=== PATIENT | male | born 1975 | race Caucasian/White ===

== ENCOUNTER 2024-03-02 01:04 | Inpatient (IN) ==
[2024-03-02] MEDS ORDERED: Etomidate 40 mg/20 ml (2 MG/ML) 20 ml VIAL (40 mg) ONE (01:48)
[2024-03-02] MEDS ORDERED: Midazolam 10 mg/10 ml VIAL 1 mg/ml 10 ml VIAL (10 mg) ONE (01:48)
[2024-03-02 03:06] LABS: INR 1.92 (0.85-1.14)
[2024-03-02 03:10] LABS: Hematocrit 17.8 % (38-53); Hemoglobin 5.6 g/dL (13.2-16.3); Mean Corpuscular Hemoglobin 27.5 pg (27-33); Mean Corpuscular Hgb Conc 31.3 g/dL (31-36); Mean Corpuscular Volume 87.9 fL (80-97); Platelet Count 374 10^3/uL (150-450); Red Blood Count 2.03 10^6/uL (4.06-5.63); Red Cell Distribution Width 17.7 % (12-17); White Blood Count 25.2 10^3/uL (3.6-10.2)
[2024-03-02 03:35] LABS: ABS Lymphocytes 0.7 10^3/uL (1.0-4.8); ABS Monocytes 1.9 10^3/uL (0.0-1.1); ABS Neutrophils 22.6 10^3/uL (1.5-7.6); Lymphocyte % 2.7 %
[2024-03-02 04:19] LABS: High Sensitivity Troponin 1 Hr 381 pg/mL (<20)
[2024-03-02] MEDS ORDERED: Dextrose 50% Syringe 50 ml 25 GM/50 ML SYRINGE ONE (04:46)
[2024-03-02 04:49] LABS: Albumin 3.6 g/dL (3.5-5.7); Albumin/Globulin Ratio 1.4 (1-3); Calcium 8.1 mg/dL (8.6-10.3); Creatinine, Serum 6.8 mg/dL (0.67-1.17); Globulin 2.5 g/dL (2-4); Magnesium 1.8 mg/dL (1.9-2.7); Total Protein 6.1 g/dL (6.4-8.9); eGFR CKD-EPI 9.2 (>60)
[2024-03-02] MEDS: Dextrose 50% Syringe 50 ml 25 GM/50 ML SYRINGE IV PUSH PRN (04:50)
[2024-03-02 06:38] LABS: Potassium 7.4 mmol/L (3.5-5.0)
[2024-03-02] MEDS: Propofol 10 mg/ml 100 ML BTL 1,000 MG/100 ML BTL IV SCH (07:40)
[2024-03-02] MEDS: Heparin 5000 UNITS/ML 1 mL VIAL SUBCUT SCH (08:20)
[2024-03-02] MEDS: Succinylcholine 200 mg VIAL 20 mg/ml 10 ml VIAL (200 mg) ONE (08:20)
[2024-03-02] MEDS ORDERED: NS 0.9% 1000 ml BAG 100 ML IV PRN (08:40)
[2024-03-02] MEDS ORDERED: NS 0.9% 1000 ml BAG 200 ML IV PRN (08:40)
[2024-03-02 08:45] LABS: Hematocrit 19.6 % (38-53); Hemoglobin 6.1 g/dL (13.2-16.3); Mean Corpuscular Hgb Conc 31.2 g/dL (31-36); Mean Corpuscular Volume 89.7 fL (80-97); Platelet Count 370 10^3/uL (150-450); Red Blood Count 2.18 10^6/uL (4.06-5.63); Red Cell Distribution Width 18.5 % (12-17); White Blood Count 29.2 10^3/uL (3.6-10.2)
[2024-03-02 09:05] LABS: Acetaminophen < 15 mcg/mL; Calcium 7.6 mg/dL (8.6-10.3); Creatinine, Serum 7.09 mg/dL (0.67-1.17); Potassium 7.9 mmol/L (3.5-5.0); Salicylate < 2.50 mg/dL (<30); eGFR CKD-EPI 8.8 (>60)
[2024-03-02 09:12] LABS: ABS Basophils 0.1 10^3/uL (0.0-0.1); ABS Eosinophils 0.1 10^3/uL (0.0-0.5); ABS Lymphocytes 1.3 10^3/uL (1.0-4.8); ABS Neutrophils 25.8 10^3/uL (1.5-7.6); Eosinophil % 0.2 %; Lymphocyte % 4.4 %; RBC Morphology Normal (Normal)
[2024-03-02] MEDS ORDERED: Sulfur Hexaflouride MICROSPHR 25 MG VIAL IV PRN (09:22)
[2024-03-02 09:26] LABS: Osmolality Serum 328 mOsm/kg (275-295)
[2024-03-02 09:28] LABS: Urine Benzodiazepine Screen None Detected (None Detect); Urine Cannabinoids Screen None Detected (None Detect); Urine Opiates Screen None Detected (None Detect)
[2024-03-02] MEDS: CALCIUM GLUCONATE 1GM/50ML NS 1 GM/50 ML BAG IV ONE (09:28)
[2024-03-02] MEDS: Chlorhexidine MOUTHWASH 0.12% 15 ML UDC TOPICAL SCH (09:29)
[2024-03-02] MEDS: Pantoprazole VIAL 40 MG VIAL IV SCH ×2 (09:31→09:52)
[2024-03-02] MEDS: Dextrose 50% Syringe 50 ml 25 GM/50 ML SYRINGE IV PUSH ONE (09:36)
[2024-03-02] MEDS: Propofol 10 mg/ml 100 ML BTL 1,000 MG/100 ML BTL ONE (09:44)
[2024-03-02] MEDS: Phytonadione IV (Adult) 10 MG in NS 0.9% 50 ML 50 ML IV ONE (09:46)
[2024-03-02] MEDS: Thiamine 100 MG/ML 2 ml VIAL 500 MG in NS 0.9% 250 ml 250 ML IV SCH (10:50)
[2024-03-02] MEDS: Norepinephrine 4 MG/250mL D5W 0 MCG/0 ML BAG IV ONE (11:10)
[2024-03-02 11:39] LABS: Hepatitis B Surface Antigen Nonreactive (Nonreactive)
[2024-03-02] MEDS: Midazolam 2 mg/2 ml VIAL 1 mg/ml 2 ml VIAL (2 mg) IV SLOW PU PRN (13:08)
[2024-03-02] MEDS: Albumin Human 25% 25 GM/100 ML BTL IV PRN (13:16)
[2024-03-02] MEDS: Azithromycin 500 mg/250 ml NS 500 MG/250 ML BAG IVPB SCH (14:03)
[2024-03-02] MEDS: Lactulose 30 ml UDC NG TUBE SCH (14:03)
[2024-03-02] MEDS: cefTRIAXone 1 gm/50 mL D5W 1 GM/50 ML BAG IV SCH (14:03)
[2024-03-02 14:31] LABS: Hepatitis B Surface Ab Indeterminate (Immune)
[2024-03-02] MEDS: Heparin 1,000 UNIT/ML 10 ml (10,000 UNITS) CATHLAB/DIALYSIS DIALYSIS PRN (14:51)
[2024-03-02] MEDS: Magnesium Sulfate 2 gm BAG 2 GM/50 ML BAG IVPB ONE ×3 (17:11→19:29)
[2024-03-02 17:30] LABS: ABS Monocytes 0.7 10^3/uL (0.0-1.1); ABS Neutrophils 12.8 10^3/uL (1.5-7.6); Eosinophil % 0.1 %; Hematocrit 15.6 % (38-53); Lymphocyte % 6.6 %; Mean Corpuscular Volume 87.6 fL (80-97); Mean Platelet Volume 7.1 fL (7.5-11.2); Platelet Count 235 10^3/uL (150-450); Red Blood Count 1.78 10^6/uL (4.06-5.63); Red Cell Distribution Width 17.6 % (12-17); White Blood Count 14.4 10^3/uL (3.6-10.2)
[2024-03-02 17:34] LABS: Urine Appearance Clear; Urine Bilirubin Negative (Negative); Urine Blood 2+ (Negative); Urine Color Yellow; Urine Glucose Negative (Negative); Urine Ketones Negative (Negative); Urine Nitrite Negative (Negative); Urine Protein 1+ (>=30 mg/dL) (Negative); Urine Specific Gravity 1.024 (1.002-1.030); Urine Urobilinogen Negative (Negative); Urine pH 5.5 (5.0-8.0)
[2024-03-02 17:44] LABS: Urine Bacteria 1+ /HPF (Absent); Urine Red Blood Cell 1+(3-5/hpf) /HPF (0-Trace); Urine White Blood Cell Trace(0-5/hpf) /HPF (0-Trace)
[2024-03-02 17:50] LABS: Magnesium 1.8 mg/dL (1.9-2.7)
[2024-03-02 18:01] LABS: INR 2.05 (0.85-1.14)
[2024-03-02 18:28] LABS: Calcium 7.6 mg/dL (8.6-10.3); Creatinine, Serum 3.52 mg/dL (0.67-1.17); Potassium 4.6 mmol/L (3.5-5.0); eGFR CKD-EPI 20.4 (>60)
[2024-03-02 21:05] LABS: High Sensitivity Troponin 1 Hr 899 pg/mL (<20)
[2024-03-02] MEDS: Acetylcysteine 600mgCAP(RENAL) PO SCH (21:48)
[2024-03-02 21:49] LABS: Hepatitis C Antibody Negative (Negative)
[2024-03-02 23:57] LABS: Hematocrit 21.1 % (38-53); Hemoglobin 6.9 g/dL (13.2-16.3)
[2024-03-03 00:23] LABS: High Sensitivity Troponin 3 Hr 983 pg/mL (<20)
[2024-03-03 02:10] LABS: Ferritin 5079.1 ng/mL (24-336)
[2024-03-03 06:10] LABS: ABS Basophils 0.1 10^3/uL (0.0-0.1); ABS Eosinophils 0.1 10^3/uL (0.0-0.5); ABS Lymphocytes 0.7 10^3/uL (1.0-4.8); ABS Neutrophils 13.2 10^3/uL (1.5-7.6); Hematocrit 20.5 % (38-53); Hemoglobin 6.9 g/dL (13.2-16.3); Lymphocyte % 4.7 %; Mean Corpuscular Hemoglobin 29.5 pg (27-33); Mean Corpuscular Hgb Conc 33.8 g/dL (31-36); Mean Corpuscular Volume 87.1 fL (80-97); Mean Platelet Volume 7.1 fL (7.5-11.2); Platelet Count 237 10^3/uL (150-450); Red Blood Count 2.35 10^6/uL (4.06-5.63); Red Cell Distribution Width 15.7 % (12-17); White Blood Count 15.1 10^3/uL (3.6-10.2)
[2024-03-03 06:36] LABS: INR 1.9 (0.85-1.14)
[2024-03-03 06:46] LABS: Calcium 7.7 mg/dL (8.6-10.3); Creatinine, Serum 4.53 mg/dL (0.67-1.17); Potassium 4.6 mmol/L (3.5-5.0); eGFR CKD-EPI 15.1 (>60)
[2024-03-03] MEDS: fentaNYL 100 mcg/2 ml 50 MCG/ML VIAL IV SLOW PU ONE (07:30)
[2024-03-03] MEDS: fentaNYL 100 mcg/2 ml 50 MCG/ML VIAL ONE (08:04)
[2024-03-03] MEDS: HYDROmorphone 1 MG/1 ML SYRINGE IV SLOW PU PRN (10:05)
[2024-03-03] MEDS: Ferric Gluconate IV 250 MG in NS 0.9% 250 ml 200 ML IVPB SCH (10:30)
[2024-03-03 15:37] LABS: ABS Basophils 0.1 10^3/uL (0.0-0.1); ABS Eosinophils 0.2 10^3/uL (0.0-0.5); ABS Lymphocytes 0.8 10^3/uL (1.0-4.8); ABS Monocytes 0.5 10^3/uL (0.0-1.1); ABS Neutrophils 10.5 10^3/uL (1.5-7.6); ABS Nucleated RBC 0.01 10^3/ul; Eosinophil % 1.5 %; Hematocrit 23.8 % (38-53); Lymphocyte % 6.3 %; Mean Corpuscular Hemoglobin 29.4 pg (27-33); Mean Corpuscular Hgb Conc 33.5 g/dL (31-36); Mean Corpuscular Volume 87.7 fL (80-97); Mean Platelet Volume 6.9 fL (7.5-11.2); Nucleated Red Blood Cells % 0.1 %/100WBC (0.0-0.8); Platelet Count 228 10^3/uL (150-450); Red Blood Count 2.71 10^6/uL (4.06-5.63); Red Cell Distribution Width 15.8 % (12-17); White Blood Count 12.1 10^3/uL (3.6-10.2)
[2024-03-03 16:14] LABS: Calcium 7.7 mg/dL (8.6-10.3); Creatinine, Serum 2.2 mg/dL (0.67-1.17); Magnesium 2.2 mg/dL (1.9-2.7); Potassium 3.2 mmol/L (3.5-5.0); eGFR CKD-EPI 35.8 (>60)
[2024-03-04 05:58] LABS: ABS Eosinophils 0.1 10^3/uL (0.0-0.5); ABS Lymphocytes 0.4 10^3/uL (1.0-4.8); ABS Monocytes 0.8 10^3/uL (0.0-1.1); ABS Neutrophils 9.1 10^3/uL (1.5-7.6); ABS Nucleated RBC 0.01 10^3/ul; Eosinophil % 1.4 %; Hematocrit 23.7 % (38-53); Hemoglobin 7.9 g/dL (13.2-16.3); Lymphocyte % 3.8 %; Mean Corpuscular Hemoglobin 29.3 pg (27-33); Mean Corpuscular Hgb Conc 33.3 g/dL (31-36); Mean Corpuscular Volume 87.9 fL (80-97); Mean Platelet Volume 7.2 fL (7.5-11.2); Nucleated Red Blood Cells % 0.1 %/100WBC (0.0-0.8); Platelet Count 172 10^3/uL (150-450); Red Cell Distribution Width 16.3 % (12-17); White Blood Count 10.5 10^3/uL (3.6-10.2)
[2024-03-04 06:00] LABS: INR 1.7 (0.85-1.14)
[2024-03-04 06:54] LABS: Calcium 7.7 mg/dL (8.6-10.3); Creatinine, Serum 3.51 mg/dL (0.67-1.17); Potassium 3.5 mmol/L (3.5-5.0); eGFR CKD-EPI 20.4 (>60)
[2024-03-04] MEDS ORDERED: EPINEPHrine,Rac 2.25% NEB.SOL 0.5 ML INH PRN (08:48)
[2024-03-04 12:57] LABS: Urine Appearance Clear; Urine Bilirubin Negative (Negative); Urine Blood 1+ (Negative); Urine Color Light-Yellow; Urine Glucose 1+ (>=70 mg/dL) (Negative); Urine Ketones Trace (Negative); Urine Nitrite Negative (Negative); Urine Protein 1+ (>=30 mg/dL) (Negative); Urine Specific Gravity 1.008 (1.002-1.030); Urine Urobilinogen Negative (Negative); Urine pH 5.5 (5.0-8.0)
[2024-03-04 13:16] LABS: Urine Bacteria Absent /HPF (Absent); Urine Red Blood Cell Trace(0-2/hpf) /HPF (0-Trace); Urine White Blood Cell Trace(0-5/hpf) /HPF (0-Trace)
[2024-03-05 06:59] LABS: Hematocrit 24.8 % (38-53); Hemoglobin 8.3 g/dL (13.2-16.3); Mean Corpuscular Hemoglobin 29.3 pg (27-33); Mean Corpuscular Hgb Conc 33.4 g/dL (31-36); Mean Corpuscular Volume 87.7 fL (80-97); Mean Platelet Volume 7.6 fL (7.5-11.2); Platelet Count 121 10^3/uL (150-450); Red Blood Count 2.83 10^6/uL (4.06-5.63); Red Cell Distribution Width 16.2 % (12-17); White Blood Count 11.5 10^3/uL (3.6-10.2)
[2024-03-05 07:17] LABS: Calcium 7.5 mg/dL (8.6-10.3); Creatinine, Serum 4.25 mg/dL (0.67-1.17); Magnesium 1.9 mg/dL (1.9-2.7); Potassium 3.1 mmol/L (3.5-5.0); eGFR CKD-EPI 16.3 (>60)
[2024-03-05 07:34] LABS: ABS Eosinophils 0.2 10^3/uL (0.0-0.5); ABS Lymphocytes 0.7 10^3/uL (1.0-4.8); ABS Neutrophils 9.6 10^3/uL (1.5-7.6); ABS Nucleated RBC 0.01 10^3/ul; Eosinophil % 1.7 %; Lymphocyte % 5.7 %; Nucleated Red Blood Cells % 0.1 %/100WBC (0.0-0.8)
[2024-03-05] MEDS: Thiamine 100 MG/ML 2 ml VIAL 100 MG in NS 0.9% 50 ML 50 ML IV SCH (09:06)
[2024-03-05] MEDS ORDERED: Thiamine 100 MG/ML 2 ml VIAL 100 MG in NS 0.9% 50 ML 50 ML IV SCH (10:00)
[2024-03-05] MEDS: Heparin 5000 UNITS/ML 1 mL VIAL SUBCUT SCH (13:36)
[2024-03-05] MEDS: Potassium Chlor 20 meq TAB.ER PO ONE (17:26)
[2024-03-05] MEDS: HYDROmorphone 1 MG/1 ML SYRINGE IV SLOW PU ONE (21:29)
[2024-03-06] MEDS: HYDROmorphone 1 MG/1 ML SYRINGE IV SLOW PU ONE (01:03)
[2024-03-06] MEDS: Lidocaine PATCH 5% PATCH TRANSDERM ONE (04:18)
[2024-03-06] MEDS ORDERED: HYDROmorphone 0.5 MG/0.5 ML SYRINGE IV SLOW PU PRN (08:41)
[2024-03-06] MEDS: Furosemide 40 mg/4 ml IV VIAL IV SCH (08:44)
[2024-03-06] MEDS: HYDROmorphone 1 MG/1 ML SYRINGE IV SLOW PU PRN ×2 (08:59→11:04)
[2024-03-06 09:36] LABS: Hematocrit 29.4 % (38-53); Hemoglobin 9.6 g/dL (13.2-16.3); Mean Corpuscular Hemoglobin 29.2 pg (27-33); Mean Corpuscular Hgb Conc 32.8 g/dL (31-36); Mean Corpuscular Volume 88.9 fL (80-97); Platelet Count 181 10^3/uL (150-450); Red Cell Distribution Width 16.6 % (12-17); White Blood Count 16.5 10^3/uL (3.6-10.2)
[2024-03-06 09:54] LABS: Calcium 7.5 mg/dL (8.6-10.3); Creatinine, Serum 4.64 mg/dL (0.67-1.17); Magnesium 1.6 mg/dL (1.9-2.7); Potassium 3.6 mmol/L (3.5-5.0); eGFR CKD-EPI 14.6 (>60)
[2024-03-06 11:35] LABS: C Reactive Protein 62.68 mg/L (<8.01)
[2024-03-06 12:38] LABS: Erythrocyte Sed Rate 10 mm/Hr (0-14)
[2024-03-06 17:47] LABS: Calcium 7.8 mg/dL (8.6-10.3); Creatinine, Serum 2.54 mg/dL (0.67-1.17); Potassium 4.1 mmol/L (3.5-5.0); eGFR CKD-EPI 30.1 (>60)
[2024-03-06 17:50] LABS: Magnesium 1.5 mg/dL (1.9-2.7)
[2024-03-06] MEDS: KCL 20 MEQ/100 ML IVPREMIX 20 MEQ/100 ML BAG IV SCH (18:14)
[2024-03-06] MEDS: Magnesium Sulf 4 GM/100 ML IV 4,000 MG/100 ML BAG IVPB ONE (18:19)
[2024-03-07] MEDS: HYDROmorphone 1 MG/1 ML SYRINGE IV SLOW PU PRN (05:58)
[2024-03-07 06:33] LABS: Hematocrit 29.2 % (38-53); Hemoglobin 9.6 g/dL (13.2-16.3); Mean Corpuscular Hemoglobin 29.7 pg (27-33); Platelet Count 178 10^3/uL (150-450); Red Blood Count 3.25 10^6/uL (4.06-5.63); White Blood Count 16.1 10^3/uL (3.6-10.2)
[2024-03-07 06:38] LABS: Calcium 8.2 mg/dL (8.6-10.3); Creatinine, Serum 3.94 mg/dL (0.67-1.17); Magnesium 2.5 mg/dL (1.9-2.7); Potassium 4.1 mmol/L (3.5-5.0); eGFR CKD-EPI 17.8 (>60)
[2024-03-07] MEDS: Nicotine PATCH 21 MG/24 HR PATCH TRANSDERM SCH (12:45)
[2024-03-07] MEDS ORDERED: fentaNYL 100 mcg/2 ml 50 MCG/ML VIAL ONE (14:29)
[2024-03-07] MEDS ORDERED: Midazolam 5 mg/5 ml VIAL 1 mg/ml 5 ml VIAL (5 mg) ONE (14:29)
[2024-03-07] MEDS ORDERED: Naloxone 0.4 mg VIAL 0.4 mg/ml 1 ml VIAL ONE (14:32)
[2024-03-07] MEDS ORDERED: Flumazenil 0.5 mg/5 ml 0.1 MG/ML 5 ml VIAL ONE (14:32)
[2024-03-07] MEDS ORDERED: Lidocaine 1% VIAL 10 MG/ML 30 ML VIAL ONE (14:36)
[2024-03-07] MEDS: Clindamycin 600 MG/D5W BAG 600 MG/50 ML BAG IV ONE (15:20)
[2024-03-07] MEDS ORDERED: Heparin 1,000 UNIT/ML 10 ml (10,000 UNITS) CATHLAB/DIALYSIS ONE (15:22)
[2024-03-07] MEDS ORDERED: Clindamycin 600 MG/NS BAG(*) 600 MG/50 ML BAG ONE (15:27)
[2024-03-08 05:51] LABS: Hematocrit 31.5 % (38-53); Hemoglobin 10.4 g/dL (13.2-16.3); Mean Corpuscular Hemoglobin 29.9 pg (27-33); Mean Corpuscular Volume 90.8 fL (80-97); Mean Platelet Volume 8.1 fL (7.5-11.2); Platelet Count 211 10^3/uL (150-450); Red Blood Count 3.47 10^6/uL (4.06-5.63); Red Cell Distribution Width 16.9 % (12-17); White Blood Count 16.8 10^3/uL (3.6-10.2)
[2024-03-08 06:06] LABS: Calcium 8.5 mg/dL (8.6-10.3); Creatinine, Serum 3.8 mg/dL (0.67-1.17); Magnesium 1.8 mg/dL (1.9-2.7); Potassium 4.4 mmol/L (3.5-5.0); eGFR CKD-EPI 18.6 (>60)
[2024-03-08] MEDS ORDERED: Nicotine PATCH 21 MG/24 HR PATCH TRANSDERM SCH (08:00)
[2024-03-08] MEDS ORDERED: COVID VAC 24-25 (12+) (Moderna) Syringe 0.5 mL IM ONE (09:00)
[2024-03-08] MEDS ORDERED: Influenza Vaccine *TRI* 2024-25* 0.5 ML SYRINGE IM ONE (09:00)
[2024-03-08] MEDS ORDERED: Pneumococcal 20-Valent Conj 0.5 ML SYR Vaccine IM ONE (09:00)
[2024-03-08] MEDS: Magnesium Sulfate 2 gm BAG 2 GM/50 ML BAG IVPB ONE (12:24)
[2024-03-09 05:37] LABS: Hemoglobin 9.5 g/dL (13.2-16.3); Mean Corpuscular Hemoglobin 30.2 pg (27-33); Mean Corpuscular Hgb Conc 32.7 g/dL (31-36); Mean Corpuscular Volume 92.3 fL (80-97); Mean Platelet Volume 7.9 fL (7.5-11.2); Platelet Count 195 10^3/uL (150-450); Red Blood Count 3.14 10^6/uL (4.06-5.63); Red Cell Distribution Width 17.8 % (12-17); White Blood Count 13.1 10^3/uL (3.6-10.2)
[2024-03-09 06:14] LABS: Calcium 8.3 mg/dL (8.6-10.3); Creatinine, Serum 4.97 mg/dL (0.67-1.17); Magnesium 2.1 mg/dL (1.9-2.7); Potassium 4.5 mmol/L (3.5-5.0); eGFR CKD-EPI 13.5 (>60)
[2024-03-09] MEDS ORDERED: COVID VAC 24-25 (12+) (Moderna) Syringe 0.5 mL IM ONE (09:00)
[2024-03-09] MEDS ORDERED: Influenza Vaccine *TRI* 2024-25* 0.5 ML SYRINGE IM ONE (09:00)
[2024-03-09] MEDS ORDERED: Pneumococcal 20-Valent Conj 0.5 ML SYR Vaccine IM ONE (09:00)
[2024-03-10 06:51] LABS: Hematocrit 30.7 % (38-53); Mean Corpuscular Hemoglobin 30.5 pg (27-33); Mean Corpuscular Hgb Conc 32.5 g/dL (31-36); Mean Corpuscular Volume 93.8 fL (80-97); Mean Platelet Volume 8.3 fL (7.5-11.2); Platelet Count 212 10^3/uL (150-450); Red Blood Count 3.27 10^6/uL (4.06-5.63); Red Cell Distribution Width 18.6 % (12-17); White Blood Count 11.4 10^3/uL (3.6-10.2)
[2024-03-10 07:01] LABS: Calcium 8.5 mg/dL (8.6-10.3); Creatinine, Serum 4.16 mg/dL (0.67-1.17); Potassium 4.9 mmol/L (3.5-5.0); eGFR CKD-EPI 16.7 (>60)
[2024-03-11 07:13] LABS: Hematocrit 31.4 % (38-53); Hemoglobin 10.2 g/dL (13.2-16.3); Mean Corpuscular Hemoglobin 30.9 pg (27-33); Mean Corpuscular Hgb Conc 32.6 g/dL (31-36); Mean Corpuscular Volume 94.6 fL (80-97); Mean Platelet Volume 7.8 fL (7.5-11.2); Platelet Count 233 10^3/uL (150-450); Red Blood Count 3.32 10^6/uL (4.06-5.63); Red Cell Distribution Width 19.9 % (12-17)
[2024-03-11 07:34] LABS: Calcium 8.6 mg/dL (8.6-10.3); Creatinine, Serum 4.25 mg/dL (0.67-1.17); Potassium 4.5 mmol/L (3.5-5.0); eGFR CKD-EPI 16.3 (>60)
[2024-03-11] MEDS: Lidocaine PATCH 5% PATCH TRANSDERM SCH (11:45)
[2024-03-12 06:59] LABS: Calcium 8.5 mg/dL (8.6-10.3); Creatinine, Serum 5.46 mg/dL (0.67-1.17); Potassium 5.3 mmol/L (3.5-5.0)
[2024-03-13 06:43] LABS: Calcium 8.6 mg/dL (8.6-10.3); Creatinine, Serum 6.4 mg/dL (0.67-1.17); Magnesium 1.9 mg/dL (1.9-2.7); Potassium 5.4 mmol/L (3.5-5.0); eGFR CKD-EPI 9.9 (>60)
[2024-03-13] MEDS ORDERED: NS 0.9% 1000 ml BAG 100 ML IV PRN (07:58)
[2024-03-13] MEDS ORDERED: Heparin 1,000 UNIT/ML 10 ml (10,000 UNITS) CATHLAB/DIALYSIS DIALYSIS PRN (07:58)
[2024-03-13] MEDS ORDERED: Albumin Human 25% 25 GM/100 ML BTL IV PRN (07:58)
[2024-03-13] MEDS ORDERED: NS 0.9% 1000 ml BAG 200 ML IV PRN (07:58)
[2024-03-13] MEDS: COVID VAC 24-25 (12+) (Moderna) Syringe 0.5 mL IM ONE (12:33)
[2024-03-13] MEDS: Pneumococcal 20-Valent Conj 0.5 ML SYR Vaccine IM ONE (12:34)
[2024-03-13] MEDS: Influenza Vaccine *TRI* 2024-25* 0.5 ML SYRINGE IM ONE (12:34)
[2024-03-16 10:24] VITALS: BP 134/77
== END 2024-03-16 13:40 | disposition home or self-care (01) | DRG 673 ==
LOC: ED 01:04 → EDHOLD 04:12 → SUATTDRO 04:12 → ICU 04:30 → MED 03-05 15:52
PROVIDERS: ADMIT Internal Medicine; ATTEND Internal Medicine
PROC: ANG.PRO (2024-03-07 14:15)